=== PATIENT | female | born 1925 | race Caucasian/White ===

== ENCOUNTER 2016-09-14 13:07 | Emergency (ER) | payer OTHER ==
[~2016-09-14] VITALS: Ht 123.2 cm; Wt 50.8 kg
[2016-09-14 14:00] VITALS: BP 169/77
[2016-09-14] MEDS ORDERED: CEPH-264 PO (14:40)
--- NOTE | 2016-09-14 14:41 | PHYS DOC ---
Past Medical History Past Medical History: Arthritis, Cancer, GERD, Hypertension, Hypothyroid Past Surgical History: Other Additional Past Surgical Histo: right mastectomy; right hand; Additional Information: nonsmoker Alcohol Use: None Drug Use: None Social History Narrative: lives with daughter, uses walker outside the home, walks unassisted at home Adult General Chief Complaint Chief Complaint: TOE PROBLEM HPI HPI Patient is a 89 year old female who presents with right great toe pain and redness for 3 days. Approximately one week ago she saw her machine tool technician instructor and had her nails trimmed. She states that there was a hangnail remaining after the nail trimming. She picked at and trimmed the toenail further to remove the fingernail. She then developed redness and pain of the toe. She denies any fever. Her PCP is Dr. Symone Cuellar. Her machine tool technician instructor is Dr. Garcia. Review of Systems Review of Systems Constitutional: Denies fever or chills. [] Musculoskeletal: Denies back pain or joint pain. Reports right great toe pain. Integument: Denies rash or skin lesions. Reports right great toe paronychia. Neurologic: Denies focal weakness or sensory changes. [] Allergies Allergies Allergies Coded Allergies Type Severity Reaction Last Updated Verified Sulfa (Sulfonamide Antibiotics) Allergy Intermediate 09/14/16 Yes Physical Exam Physical Exam Constitutional: Well developed, well nourished, no acute distress, non-toxic appearance. [] HENT: Normocephalic, atraumatic, oropharynx moist. [] Eyes: PERRLA, EOMI, conjunctiva normal, no discharge. [] Skin: Warm, dry, no erythema, no rash. Right great toe paronychia on the lateral side of the nail. There is no pocket of infection appropriate for incision and drainage at this time. Extremities: Distal right great toe tenderness, mild edema. Less than 2 second capillary refill in the toes distally. Light touch sensation intact distally. 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 Neurologic: Alert and oriented X 3, normal motor function, normal sensory function, no focal deficits noted. [] Psychologic: Affect normal, judgement normal, mood normal. [] Current Patient Data Vital Signs Vital Signs Date Time Temp Pulse Resp B/P Pulse Ox O2 Delivery O2 Flow Rate FiO2 09/14/16 14:00 97.5 105 20 169/77 95 Room Air 97.5 EKG EKG [] Radiology/Procedures Radiology/Procedures [] Course & Med Decision Making Course & Med Decision Making Pertinent Labs and Imaging studies reviewed. (See chart for details) [] Dragon Disclaimer Dragon Disclaimer This electronic medical record was generated, in whole or in part, using a voice recognition dictation system. Departure Departure Impression: Primary Impression: Paronychia of great toe of right foot Disposition: HOME, SELF-CARE Condition: STABLE Referrals: SYMONE CUELLAR MD (PCP) VENU GARCIA DPM Patient Instructions: Paronychia, [id number] Additional Instructions: You were seen for an infection near your toenail of the right great toe. Please complete all the prescribed antibiotics, even if your toe is improving. Please keep the toe covered with antibiotic ointment and a bandage. Please follow-up with your machine tool technician instructor within the next week. Return to the emergency department with any new or concerning symptoms. Scripts Cephalexin (Keflex)500 Mg Capsule1 Cap PO BID #[id number] CAP Prov:RAINER SCHWAB 09/14/16 RAINER SCHWAB Sep 14, 2016 14:41
== END 2016-09-14 15:10 | disposition home or self-care (01) ==
LOC: ER 13:07
DX: L03.031 Cellulitis of right toe (principal); M19.90 Unspecified osteoarthritis, unspecified site; K21.9 Gastro-esophageal reflux disease without esophagitis; I10 Essential (primary) hypertension; E03.9 Hypothyroidism, unspecified; Z88.2 Allergy status to sulfonamides; Z89.421 Acquired absence of other right toe(s)
CPT/HCPCS: 99284